=== PATIENT | male | born 1980 | race Caucasian/White ===

== ENCOUNTER 2018-06-02 05:31 | Observation (INO) | payer SELFPAY ==
[2018-06-02] MEDS ORDERED: KETOROLAC TROMETHAMINE INJ/PF 30 MG/1 ML SDV IV ONE (06:12)
[2018-06-02 06:39] LABS: ABSOLUTE BASOPHILS # (AUTO) 0.1 10^3/uL (0.0-0.2); ABSOLUTE EOSINOPHILS # (AUTO) 0.4 10^3/uL (0.0-0.6); ABSOLUTE LYMPHOCYTES (AUTO) 2.1 10^3/uL (0.5-4.7); ABSOLUTE MONOCYTES (AUTO) 0.8 10^3/uL (0.1-1.4); ABSOLUTE NEUT (AUTO) 7.2 10^3/uL (1.7-8.2); EOSINOPHILS % (AUTO) 3.9 % (0-6); HEMATOCRIT 41.4 % (37.9-51.0); HEMOGLOBIN 14.4 g/dL (13.5-17.0); LYMPHOCYTES % (AUTO) 19.4 % (13-45); MEAN CORPUSCULAR HEMOGLOBIN 31.8 pg (27.0-33.4); MEAN CORPUSCULAR HGB CONC 34.7 g/dL (32.0-36.0); MEAN CORPUSCULAR VOLUME 92 fl (80-97); MONOCYTES % (AUTO) 7.9 % (3-13); PLATELET COUNT 179 10^3/uL (150-450); RED BLOOD COUNT 4.52 10^6/uL (4.35-5.55); RED CELL DISTRIBUTION WIDTH 13.2 % (11.5-14.0); SEGMENTED NEUTROPHILS % (AUTO) 67.8 % (42-78); TOTAL CELLS COUNTED % (AUTO) 100 %; WHITE BLOOD COUNT 10.6 10^3/uL (4.0-10.5)
--- NOTE | 2018-06-02 06:42 | ER Document Report ---
ED General - General Chief Complaint: Insect Bite Stated Complaint: POSSIBLE SPIDER BITE RIGHT KNEE Time Seen by Provider: 06/02/18 06:00 TRAVEL OUTSIDE OF THE [place] IN LAST 30 DAYS: No - HPI Notes: Patient is a 37-year-old male that presents to the emergency department for chief complaint of right knee pain and swelling. Last night patient noticed a skin lesion on his right knee. He states he tried to pop it and clear fluid came out. After that he noticed a rapid increase in redness and swelling over his right knee. He states he has significant pain with bending and straightening his knee. The pain is somewhat relieved when he is holding his knee in slight flexion. The pain is worse when he is up ambulating. He denies any fevers but states on the way to the emergency room he started to feel ill. He has not taken any [id number] medication for his pain. He denies any history of surgery on that knee before or recent injections. He denies history of gout or joint infection in the past. Past Medical History: Negative Past Surgical History: Negative Social History: Daily tobacco. Denies drugs and alcohol Family History: Reviewed and noncontributory for presenting illness Allergies: Reviewed, see documented allergy list. REVIEW OF SYSTEMS: CONSTITUTIONAL : No fever No chills No diaphoresis No recent illness EENT: No vision changes No congestion No sore throat CARDIOVASCULAR: No chest pain No palpitations RESPIRATORY: No shortness of breath No cough No difficulty breathing GASTROINTESTINAL: No abdominal pain No nausea No vomiting No diarrhea GENITOURINARY: No dysuria No hematuria No difficulty urinating MUSCULOSKELETAL: No back pain Right knee pain No arm pain SKIN: Right knee redness Right knee lesion LYMPHATIC: No swollen, enlarged glands. NEUROLOGICAL: No lightheadedness No headache No weakness No paresthesias PSYCHIATRIC: No anxiety No depression PHYSICAL EXAMINATION: Vital signs reviewed, nursing noted reviewed. GENERAL: Well-appearing, well-nourished and in no acute distress. HEAD: Atraumatic, normocephalic. EYES: Eyes appear normal, extraocular movements intact, sclera anicteric, conjunctiva are normal. ENT: nares patent, oropharynx clear without exudates. Moist mucous membranes. NECK: Normal range of motion, supple without lymphadenopathy LUNGS: Breath sounds clear to auscultation bilaterally and equal. No wheezes rales or rhonchi. HEART: Regular rate and rhythm without murmurs ABDOMEN: Soft, nontender, normoactive bowel sounds. No rebound, guarding, or rigidity. No masses appreciated. EXTREMITIES: Right knee limited range of motion in flexion. Right knee effusion. Tenderness to palpation of right patella. No medial or lateral joint line tenderness. Right knee calor. NEUROLOGICAL: No focal neurological deficits. Moves all extremities spontaneously Motor and sensory grossly intact on exam. PSYCH: Normal mood, normal affect. SKIN: Warm, Dry, normal turgor, erythema anterior to right knee with medial right thigh lymphatic streaking. Small pustule over anterior right knee with no active drainage or bleeding. - Related Data Allergies/Adverse Reactions: bee venom protein (honey bee) Allergy (Severe, Verified 06/02/18 06:02) Anaphylaxis Past Medical History - Social History Smoking Status: Current Every Day Smoker Chew tobacco use (# tins/day): No Frequency of alcohol use: None Drug Abuse: Marijuana Family History: Reviewed & Not Pertinent Patient has suicidal ideation: No Patient has homicidal ideation: No Renal/ Medical History: Denies: Hx Peritoneal Dialysis Past Surgical History: Reports: Hx Abdominal Surgery Review of Systems - Review of Systems Notes: Dictated Physical Exam - Vital signs Vitals: Temp Pulse Resp BP Pulse Ox 98.1 F 89 16 123/73 96 06/02/18 05:36 06/02/18 05:36 06/02/18 05:36 06/02/18 05:36 06/02/18 05:36 - Notes Notes: Dictated Course - Re-evaluation Re-evalutation: 06/02/18 06:42 Vitals reviewed. Nursing notes reviewed. Patient given Toradol for symptomatic management. 06/02/18 07:45 Patient reevaluated and is having improvement of his pain. He states if he is holding still his pain is almost completely resolved. He states if even wiggles his toes or moves his knee at all the pain is severe. He does not want any more medication for pain at this time. I discussed his care with Dr. Morelos who would like to admit the patient for IV antibiotics for his right knee cellulitis and possible septic arthritis. He requests patient be started on antibiotics, vancomycin was started. Dr. Morelos will evaluate the patient and do possible knee aspiration as an inpatient. Patient is in agreement with this plan and stable at time of admission. Laboratory 06/02/18 06/02/18 06:30 06:30 WBC 10.6 H RBC 4.52 Hgb 14.4 Hct 41.4 MCV 92 MCH 31.8 MCHC 34.7 RDW 13.2 Plt Count 179 Seg Neutrophils % 67.8 Lymphocytes % 19.4 Monocytes % 7.9 Eosinophils % 3.9 Basophils % 1.0 Absolute Neutrophils 7.2 Absolute Lymphocytes 2.1 Absolute Monocytes 0.8 Absolute Eosinophils 0.4 Absolute Basophils 0.1 ESR 7 Sodium 142.0 Potassium 3.5 L Chloride 104 Carbon Dioxide 26 Anion Gap 12 BUN 14 Creatinine 0.97 Est GFR ( Amer) > 60 Est GFR (Non-Af Amer) > 60 Glucose 120 H Calcium 9.0 C-Reactive Protein 13.9 H - Vital Signs Vital signs: Temp Pulse Resp BP Pulse Ox 98.1 F 89 16 123/73 96 06/02/18 05:36 06/02/18 05:36 06/02/18 05:36 06/02/18 05:36 06/02/18 05:36 - Laboratory Result Diagrams: 06/02/18 06:30 06/02/18 06:30 Laboratory results interpreted by me: 06/02/18 06/02/18 06:30 06:30 WBC 10.6 H Potassium 3.5 L Glucose 120 H C-Reactive Protein 13.9 H Discharge - Discharge Clinical Impression: Cellulitis of right knee, Effusion, right knee Right knee pain Qualifiers: Chronicity: acute Qualified Code(s): M25.561 - Pain in right knee Condition: Stable Disposition: ADMITTED INPATIENT Admitting Provider: Dr. Morelos Unit Admitted: Surgical Floor
[2018-06-02 07:00] LABS: ANION GAP 12 (5-19); BLOOD UREA NITROGEN 14 mg/dL (7-20); C-REACTIVE PROTEIN 13.9 mg/L (<10.0); CARBON DIOXIDE 26 mmol/L (22-30); CHLORIDE 104 mmol/L (98-107); GLUCOSE 120 mg/dL (75-110); POTASSIUM 3.5 mmol/L (3.6-5.0)
[2018-06-02 07:19] LABS: ERYTHROCYTE SEDIMENTATION RATE 7 mm/hr (0-15)
[2018-06-02] MEDS ORDERED: VANCOMYCIN HCL INJ 1000 MG VIAL IV ONE (07:44)
--- NOTE | 2018-06-02 08:12 | RADIOLOGY REPORT (SQ) ---
EXAM DESCRIPTION: KNEE RIGHT 3 VIEWS COMPLETED DATE/TIME: 06/02/2018 8:01 am REASON FOR STUDY: effusion COMPARISON: None. NUMBER OF VIEWS: Three views right knee. LIMITATIONS: None. FINDINGS: Bones intact. Joints maintained. No effusion. Mild prepatellar soft tissue swelling. OTHER: No radiopaque foreign body. IMPRESSION: Mild prepatellar soft tissue swelling. TECHNICAL DOCUMENTATION: JOB ID: [id number] Reading location - IP/workstation name: [email or web address]
[2018-06-02] MEDS ORDERED: ONDANSETRON 4 MG TAB.RAPDIS SL PRN (18:15)
[2018-06-02] MEDS: HYDROCODONE/ACETAMINOPHEN 5-325 MG TABLET PO PRN (18:30)
[2018-06-02] MEDS ORDERED: NICOTINE 21 MG/24 HR PATCH.TD24 TD ONE (20:00)
[2018-06-02] MEDS ORDERED: VANCOMYCIN HCL 1,000 MG in DEXTROSE 5%-WATER 250 ML IV SCH (22:00)
[2018-06-03] MEDS: HYDROCODONE/ACETAMINOPHEN 5-325 MG TABLET PO PRN (06:16)
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
--- NOTE | 2018-06-03 06:49 | PDOC DISCHARGE SUMMARY ---
General - Admit/Disc Date/PCP Admission Date/Primary Care Provider: 06/02/18 08:08 Discharge Date: 06/03/18 - Discharge Diagnosis (1) Prepatellar bursitis of right knee Is this a current diagnosis for this admission?: Yes - Additional Information Home Medications: Epinephrine [Epipen 2-Timothy] 0.3 mg IM ONCE #0 ml 03/26/14 History of Present Illness History of Present Illness: 37-year-old with spontaneous onset of a right prepatellar bursitis Hospital Course Hospital Course: Patient started on empiric vancomycin and observed. Over the course of the hospitalization the area of erythema which is been demarcated with pen taylor has continued to decrease in the patient's symptoms are decreasing as well. He remains afebrile. Physical Exam Vital Signs: Temp Pulse Resp BP Pulse Ox 36.7 C 74 19 102/55 L 98 06/02/18 22:57 06/02/18 22:57 06/02/18 22:57 06/02/18 22:57 06/02/18 22:57 Intake & Output 06/01/18 06/02/18 06/03/18 06:59 06:59 06:59 Intake Total 1362 Balance 1362 Weight 69.6 kg General appearance: PRESENT: no acute distress, well-developed, well-nourished Head exam: PRESENT: normocephalic Respiratory exam: PRESENT: unlabored Cardiovascular exam: PRESENT: RRR Pulses: PRESENT: +1 pedal pulses bilateral Vascular exam: PRESENT: normal capillary refill GI/Abdominal exam: PRESENT: soft Rectal exam: PRESENT: deferred Musculoskeletal exam: PRESENT: other - Resolving prepatellar erythema Neurological exam: PRESENT: alert, awake, oriented to person, oriented to place , oriented to time, oriented to situation, CN II-XII grossly intact. ABSENT: motor sensory deficit Skin exam: PRESENT: erythema, warm Results Impressions: Knee X-Ray 06/02/18 07:42 IMPRESSION: Mild prepatellar soft tissue swelling. Status: Imported from PACS Qualifiers - * PATIENT BEING DISCHARGED WITH ANY OF THE FOLLOWING DIAGNOSIS: No VTE patient discharged on overlapping Therapy?: No Reason(s) for not prescribing Overlap Therapy:: Not indicated Plan Discharge Plan: Patient to be discharged on oral Cipro floxacillin and Vicodin. Follow-up with Dr. Morelos and [facility] surgery on Monday or Monday for clinical reevaluation Time Spent: Less than 30 Minutes
[2018-06-03 08:03] VITALS: BP 113/96
[2018-06-03] MEDS ORDERED: NICOTINE 21 MG/24 HR PATCH.TD24 TD SCH (10:00)
== END 2018-06-03 08:25 | disposition home or self-care (01) ==
LOC: ER 05:31 → INTOOBSV 08:08 → EH 08:08 → 4S 09:46
PROVIDERS: ADMIT Orthopaedic Surgery; ATTEND Orthopaedic Surgery
DX: M70.41 Prepatellar bursitis, right knee (principal); F17.200 Nicotine dependence, unspecified, uncomplicated; F12.10 Cannabis abuse, uncomplicated
CPT/HCPCS: 99284; 96374; 36415; 87040; 85025; 85652; 86140; 80048; 73562; G0378 ×2; S0119; J1885; J7060; J3370

== ENCOUNTER 2020-06-16 10:57 | Emergency (ER) | payer OTHER ==
[2020-06-16 11:08] VITALS: BP 130/91
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
[2020-06-16 12:45] LABS: APPEARANCE,URINE CLEAR; BILIRUBIN,URINE NEGATIVE (NEGATIVE); COLOR,URINE YELLOW; GLUCOSE, URINE NEGATIVE (NEGATIVE); KETONES,URINE NEGATIVE (NEGATIVE); LEUKOCYTE ESTERASE,URINE NEGATIVE (NEGATIVE); NITRITE,URINE NEGATIVE (NEGATIVE); PROTEIN,URINE NEGATIVE (NEGATIVE); URINE SPECIFIC GRAVITY 1.006; UROBILINOGEN,URINE NEGATIVE mg/dL (<2.0)
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
== END 2020-06-16 13:40 | disposition home or self-care (01) ==
LOC: ER 10:57
DX: F07.81 Postconcussional syndrome (principal); K43.2 Incisional hernia without obstruction or gangrene; R42 Dizziness and giddiness; H92.02 Otalgia, left ear; V89.2XXA Person injured in unspecified motor-vehicle accident, traffic, initial encounter; Y92.410 Unspecified street and highway as the place of occurrence of the external cause; F17.200 Nicotine dependence, unspecified, uncomplicated
CPT/HCPCS: 70450; 71046; 72125; 81001; 99285